=== PATIENT | female | born 1995 | race Caucasian/White ===

== ENCOUNTER 2021-08-21 21:50 | Emergency (ER) | payer MEDICAID ==
[~2021-08-21] VITALS: Ht 160 cm; Wt 63.6 kg
[~2021-08-21 21:50] MED LIST: IBUP-1984 PO; NITR100C6 PO; ZOF4T PO
[2021-08-21 21:59] VITALS: BP 142/94
== END 2021-08-22 01:14 | disposition left against medical advice (07) ==
LOC: ER 21:50
DX: H92.01 Otalgia, right ear (principal); Z53.21 Procedure and treatment not carried out due to patient leaving prior to being seen by health care provider